=== PATIENT | female | born 1965 | race African-American/Black ===

== ENCOUNTER 2016-07-29 19:24 | Emergency (ER) | payer MEDICAID ==
[~2016-07-29] VITALS: Ht 162.6 cm; Wt 73.0 kg
[~2016-07-29 19:24] MED LIST: NAPR250T
[2016-07-30] MEDS ORDERED: HYDROCODONE/APAP 7.5/325MG 1 TAB TABLET PO ONE (00:45)
[2016-07-30 00:59] LABS: CLARITY URINE CLEAR (CLEAR); COLOR URINE YELLOW (YELLOW); GLUCOSE URINE NEGATIVE (NEGATIVE); KETONES URINE TRACE (NEGATIVE); LEUKOCYTE ESTERASE URINE NEGATIVE (NEGATIVE); NITRITE URINE NEGATIVE (NEGATIVE); OCCULT BLOOD URINE NEGATIVE (NEGATIVE); PH URINE 5.5 (4.5-8.0); PROTEIN URINE NEGATIVE (NEGATIVE)
[2016-07-30] MEDS ORDERED: KETOROLAC 60MG/2ML VIAL IM NR (01:45)
[2016-07-30 02:36] VITALS: BP 138/84
== END 2016-07-30 05:30 | disposition home or self-care (01) ==
LOC: ER 19:39
DX: M43.6 Torticollis (principal); M25.512 Pain in left shoulder; M25.511 Pain in right shoulder; M54.9 Dorsalgia, unspecified; F17.210 Nicotine dependence, cigarettes, uncomplicated
CPT/HCPCS: 81003; 96372; 99283; J1885; Z7610

== ENCOUNTER 2017-11-30 00:51 | Emergency (ER) | payer MEDICAID ==
[~2017-11-30] VITALS: Ht 165.1 cm; Wt 90.0 kg
[2017-11-30] MEDS ORDERED: KETOROLAC 30MG/ML VIAL IM ONE (01:45)
[2017-11-30] MEDS ORDERED: DIAZEPAM 5 MG TABLET PO ONE (01:45)
[2017-11-30 06:39] VITALS: BP 107/60
== END 2017-11-30 06:42 | disposition home or self-care (01) ==
LOC: ER 00:56
DX: M54.16 Radiculopathy, lumbar region (principal); F17.200 Nicotine dependence, unspecified, uncomplicated; R56.9 Unspecified convulsions; Z98.890 Other specified postprocedural states
CPT/HCPCS: 72131; 96372; 99284; J1885

== ENCOUNTER 2018-02-09 16:47 | Emergency (ER) | payer MEDICAID ==
[~2018-02-09] VITALS: Ht 152.4 cm; Wt 80.0 kg
[2018-02-09] MEDS ORDERED: ALBUTEROL (0.083%) 2.5MG/3ML NEB HHN ONE (19:00)
[2018-02-09 20:33] LABS: CHLORIDE 105 mEq/L (98-107)
[2018-02-09 20:35] LABS: BASOPHILS % 1.5 % (0.0-2.0); EOSINOPHILS % 2.1 % (0.0-5.0); HEMATOCRIT. 35.9 % (36.0-48.0); HEMOGLOBIN. 11.9 g/dL (12.0-16.0); LYMPHOCYTES % 38.1 % (20.0-50.0); MEAN CORPUSCULAR HEMOGLOBIN 32.5 pg (28.0-32.0); MEAN CORPUSCULAR VOLUME 98.2 fL (81.0-99.0); MEAN PLATELET VOLUME 8.9 fl (7.4-10.4); NEUTROPHILS % 51.3 % (40.0-76.0); PLATELET 222 x1000/uL (130-400); RED BLOOD CELL COUNT 3.66 mill/uL (4.2-5.4); RED CELL DISTRIBUTION WIDTH 14.3 % (11.6-14.6)
[2018-02-09 22:15] VITALS: BP 153/103
== END 2018-02-09 22:15 | disposition home or self-care (01) ==
LOC: ER 16:47
DX: J45.901 Unspecified asthma with (acute) exacerbation (principal); F17.210 Nicotine dependence, cigarettes, uncomplicated; R03.0 Elevated blood-pressure reading, without diagnosis of hypertension
CPT/HCPCS: 36415; 71045; 83880; 84484; 93005; 99284

== ENCOUNTER 2019-04-02 13:23 | Emergency (ER) | payer MEDICAID ==
[~2019-04-02] VITALS: Ht 152.4 cm; Wt 90.0 kg
[2019-04-02 18:34] VITALS: BP 150/80
== END 2019-04-02 18:36 | disposition home or self-care (01) ==
LOC: ER 13:23
DX: R05 Cough (principal); G89.29 Other chronic pain; R19.7 Diarrhea, unspecified; F17.200 Nicotine dependence, unspecified, uncomplicated; Z98.890 Other specified postprocedural states
CPT/HCPCS: 71045; 99283

== ENCOUNTER 2024-08-02 19:12 | Inpatient (IN) | payer MEDICAID, OTHER ==
[~2024-08-02] VITALS: Ht 312.4 cm; Wt 89.8 kg
[2024-08-02 19:18] VITALS: O2SAT 98
[2024-08-02 20:18] LABS: CLARITY URINE CLEAR (CLEAR); COLOR URINE DARK YELLOW (YELLOW); GLUCOSE URINE NEGATIVE (NEGATIVE); KETONES URINE NEGATIVE (NEGATIVE); LEUKOCYTE ESTERASE URINE NEGATIVE (NEGATIVE); NITRITE URINE POSITIVE (NEGATIVE); OCCULT BLOOD URINE NEGATIVE (NEGATIVE); PH URINE 7.5 (4.5-8.0); PROTEIN URINE NEGATIVE (NEGATIVE); SPECIFIC GRAVITY URINE 1.014 (1.005-1.030)
[2024-08-02 20:27] LABS: RBC URINE 0-2 /hpf (0-2); WBC URINE 0-2 /hpf (0-2)
[2024-08-02 20:28] LABS: BACTERIA URINE NONE SEEN; SQUAMOUS EPITHELIAL CELL URINE 1+ /lpf (RARE/1+)
[2024-08-02 20:31] LABS: BASOPHILS % 0.6 % (0.0-2.0); MEAN CORPUSCULAR HGB CONC 33.6 g/dL (31.0-37.0); WHITE BLOOD COUNT 5.1 x1000/uL (4.5-11.0)
[2024-08-02 20:33] LABS: EOSINOPHILS % 0.9 % (0.0-5.0); HEMATOCRIT. 28.1 % (36.0-48.0); HEMOGLOBIN. 9.4 g/dL (12.0-16.0); LYMPHOCYTES % 21.4 % (20.0-50.0); MEAN CORPUSCULAR HEMOGLOBIN 36.9 pg (28.0-32.0); MEAN CORPUSCULAR VOLUME 109.8 fL (81.0-99.0); MEAN PLATELET VOLUME 8.8 fl (7.4-10.4); MONOCYTES % 9.7 % (2.0-8.0); NEUTROPHILS % 67.4 % (40.0-76.0); PLATELET 67 x1000/uL (130-400); RED BLOOD CELL COUNT 2.55 mill/uL (4.2-5.4); RED CELL DISTRIBUTION WIDTH 17.3 % (11.6-14.6)
[2024-08-02 20:38] LABS: CHLORIDE 107 mEq/L (98-107); POTASSIUM 3.7 mEq/L (3.5-5.1); SODIUM 140 mEq/L (136-145)
[2024-08-02 20:39] LABS: CALCIUM 7.9 mg/dL (8.7-10.4); CARBON DIOXIDE 23 mEq/L (21-32)
[2024-08-02 20:44] LABS: CREATININE 0.7 mg/dL (0.6-1.0); GLUCOSE 79 mg/dL (70-105); TROPONIN I HIGH SENSITIVITY 21 ng/L (3.0-34); UREA NITROGEN BLOOD < 5 mg/dL (9-23)
[2024-08-02 20:45] LABS: ADD RBC MORPHOLOGY YES; DIFFERENTIAL COMMENT 1
[2024-08-02 20:46] LABS: ALANINE AMINOTRANSFERASE 37 IU/L (10-49); ALBUMIN 2.1 g/dL (3.2-4.8); ASPARTATE AMINOTRANSFERASE 111 IU/L (<34); BILIRUBIN DIRECT 5.8 mg/dL (<=3.0); BILIRUBIN TOTAL 9.3 mg/dL (0.1-1.0); PROTEIN TOTAL 7.4 g/dL (6.0-8.3)
[2024-08-02 20:51] LABS: PARTIAL THROMBOPLASTIN TIME 46.1 sec (23.4-31.0)
[2024-08-02 20:53] LABS: PLATELET ESTIMATE DECREASED
[2024-08-02 21:06] LABS: PROTHROMBIN TIME 22.1 sec (9.6-11.0)
[2024-08-02] MEDS ORDERED: CEFTRIAXONE 2,000 MG in DEXT 5% WATER 100 ML IV SCH (22:45)
[2024-08-02] MEDS: KETOROLAC 15MG/ML VIAL IV ONE (22:45)
[2024-08-03] MEDS: KETOROLAC 15MG/ML VIAL IV NR (00:55)
[2024-08-03] MEDS: CEFTRIAXONE 2GM/50ML 50ML IV SCH (00:56)
[2024-08-03] MEDS: MORPHINE SULFATE 4 MG/ML INJ (FOR IV/IM USE) IV ONE (00:56)
[2024-08-03 08:00] VITALS: BP 128/69; PULSE 89; RESP 18; TEMP 36.6; O2SAT 97
[2024-08-03 09:00] VITALS: BP 128/64; PULSE 89; RESP 20; TEMP 36.5
[2024-08-03] MEDS ORDERED: ONDANSETRON HCL 4MG/2ML INJ IV PRN (11:15)
[2024-08-03 11:52] VITALS: BP 125/57; PULSE 97; RESP 19; TEMP 36.7; O2SAT 95
[2024-08-03] MEDS: LACTULOSE 20G/30ML UDC PO SCH (15:20)
[2024-08-03] MEDS: SPIRONOLACTONE 25MG TABLET PO SCH (15:21)
[2024-08-03] MEDS: FUROSEMIDE 40MG TABLET PO SCH (15:22)
[2024-08-03] MEDS: KETOROLAC 15MG/ML VIAL IV PRN (15:22)
[2024-08-03 15:58] VITALS: BP 100/50; PULSE 87; RESP 19; TEMP 36.6; O2SAT 94
[2024-08-03 20:00] VITALS: BP 107/59; PULSE 82; RESP 18; TEMP 36.9; O2SAT 98
[2024-08-04] VITALS (7 sets, daily range): BP systolic 112–122; BP diastolic 53–74; PULSE 73–89; RESP 18–20; TEMP 36.4–36.7; O2SAT 96–100
[2024-08-04] MEDS: CEFTRIAXONE 1GM/50ML 50 ML IV SCH (01:37)
[2024-08-04] MEDS ORDERED: LIDOCAINE HCL 1% 10 MG/ML 10ML VIAL ONE (13:55)
[2024-08-04] MEDS ORDERED: LEVO-65 MT (17:28)
[2024-08-04 23:24] LABS: BODY FLUID RBC 234 /cu mm (0-2000); BODY FLUID WBC 70 /cu mm (0-200)
[2024-08-04 23:25] LABS: BODY FLUID MONOCYTES 4 %
[2024-08-05 04:00] VITALS: BP 107/51; PULSE 80; RESP 19; TEMP 36.4; O2SAT 99
== END 2024-08-05 10:49 | disposition left against medical advice (07) ==
LOC: ER 19:12 → 7WST 08-03 00:03 → EDBEDREQSVC 08-03 00:47 → EDBEDREQTM 08-03 00:47 → EDBEDREQ 08-03 00:47 → ENRESERV 08-03 06:56
PROVIDERS: ADMIT Internal Medicine; ATTEND Internal Medicine
PROC: 0W9G3ZZ Drainage of Peritoneal Cavity, Percutaneous Approach (ICD-10-PCS; principal; 2024-08-04)
DX: K74.60 Unspecified cirrhosis of liver (principal); K85.90 Acute pancreatitis without necrosis or infection, unspecified; D69.6 Thrombocytopenia, unspecified; K76.6 Portal hypertension; R18.8 Other ascites; N39.0 Urinary tract infection, site not specified; E66.9 Obesity, unspecified; D64.9 Anemia, unspecified; Z53.29 Procedure and treatment not carried out because of patient's decision for other reasons; I10 Essential (primary) hypertension; Z90.49 Acquired absence of other specified parts of digestive tract; Z68.1 Body mass index [BMI] 19.9 or less, adult
CPT/HCPCS: 36415; 49083; 71045; 74176; 80048; 80076; 81003; 84484; 85025; 86850; 86900; 93005; 99285; J0696; J1885; J2003; J2270